=== PATIENT | female | born 1990 | race African-American/Black ===

== ENCOUNTER 2024-01-28 23:04 | Emergency (ER) | payer SELFPAY ==
[~2024-01-28] VITALS: Ht 167.6 cm; Wt 86.0 kg
[2024-01-28 23:11] VITALS: TEMP 94.2; O2SAT 96
[2024-01-29 01:15] LABS: CLARITY URINE CLEAR (CLEAR); COLOR URINE YELLOW (YELLOW); GLUCOSE URINE NEGATIVE (NEGATIVE); KETONES URINE NEGATIVE (NEGATIVE); LEUKOCYTE ESTERASE URINE NEGATIVE (NEGATIVE); NITRITE URINE NEGATIVE (NEGATIVE); OCCULT BLOOD URINE NEGATIVE (NEGATIVE); PH URINE 5.5 (4.5-8.0); PROTEIN URINE NEGATIVE (NEGATIVE); SPECIFIC GRAVITY URINE 1.026 (1.005-1.030); UROBILINOGEN URINE 0.2 E.U./dL (0.2-1.0)
[2024-01-29 01:34] LABS: BASOPHILS % 0.7 % (0.0-2.0); EOSINOPHILS % 2.2 % (0.0-5.0); HEMATOCRIT. 43.4 % (36.0-48.0); HEMOGLOBIN. 13.9 g/dL (12.0-16.0); LYMPHOCYTES % 26.8 % (20.0-50.0); MEAN CORPUSCULAR HEMOGLOBIN 25.9 pg (28.0-32.0); MEAN CORPUSCULAR HGB CONC 32.1 g/dL (31.0-37.0); MEAN CORPUSCULAR VOLUME 80.7 fL (81.0-99.0); MEAN PLATELET VOLUME 8.9 fl (7.4-10.4); MONOCYTES % 5.4 % (2.0-8.0); NEUTROPHILS % 64.9 % (40.0-76.0); PLATELET 294 x1000/uL (130-400); RED BLOOD CELL COUNT 5.38 mill/uL (4.2-5.4); RED CELL DISTRIBUTION WIDTH 14.5 % (11.6-14.6); WHITE BLOOD COUNT 8.2 x1000/uL (4.5-11.0)
[2024-01-29 01:41] LABS: CHLORIDE 108 mEq/L (98-107); POTASSIUM 3.7 mEq/L (3.5-5.1); SODIUM 140 mEq/L (136-145)
[2024-01-29 01:42] LABS: CALCIUM 9.5 mg/dL (8.7-10.4); CARBON DIOXIDE 24 mEq/L (21-32)
[2024-01-29 01:47] LABS: CREATININE 0.7 mg/dL (0.6-1.0); GLUCOSE 77 mg/dL (70-105); UREA NITROGEN BLOOD 16 mg/dL (9-23)
[2024-01-29 01:49] LABS: ALANINE AMINOTRANSFERASE 38 IU/L (10-49); ALBUMIN 4.4 g/dL (3.2-4.8); ASPARTATE AMINOTRANSFERASE 40 IU/L (<34); BILIRUBIN DIRECT 0.2 mg/dL (<=3.0); BILIRUBIN TOTAL 0.7 mg/dL (0.1-1.0); PROTEIN TOTAL 7.5 g/dL (6.0-8.3)
[2024-01-29] MEDS: KETOROLAC 30MG/ML VIAL IM ONE (01:58)
[2024-01-29] MEDS: HYDROCODONE/ACETAMINOPHEN 10/325MG TABLET PO ONE (01:59)
[2024-01-29 02:26] LABS: HCG SCREEN NEGATIVE
[2024-01-29] MEDS ORDERED: NAPR-1176 MT (03:20)
[2024-01-29 04:41] VITALS: BP 128/82; PULSE 70; RESP 18; O2SAT 97
== END 2024-01-29 04:44 | disposition home or self-care (01) ==
LOC: ER 23:04
DX: R10.84 Generalized abdominal pain (principal)
CPT/HCPCS: 36415; 93005; 99285; 80076; 80048; 81003; 84703; 83690; 85025; 74176; 96372; J1885; Z7610